=== PATIENT | male | born 1950 | race Caucasian/White ===

== ENCOUNTER 2018-02-02 22:30 | Inpatient (IN) | payer MEDICARE ==
[~2018-02-02] VITALS: Ht 182.9 cm; Wt 96.4 kg
[2018-02-03 00:03] LABS: BASOPHIL % 0.2 % (0-2); PLATELET COUNT 245 x10^3mcL (130-400)
[2018-02-03 00:10] LABS: RED CELL DISTRIBUTION WIDTH 21.3 % (11.5-14.5)
[2018-02-03 00:23] LABS: CALCIUM 8.1 mg/dL (8.5-10.1); CREATININE SERUM 1.5 mg/dL (0.7-1.3); POTASSIUM SERUM 3.5 mmol/L (3.5-5.1)
[2018-02-03 00:28] LABS: BILIRUBIN TOTAL 0.9 mg/dL (0.20-1.00); TOTAL PROTEIN, SERUM 7.1 g/dL (6.4-8.2)
[2018-02-03 00:31] LABS: ALBUMIN 2.5 g/dL (3.4-5.0)
[2018-02-03] MEDS ORDERED: MULTI-VITAMINS1 TAB PO (00:45)
[2018-02-03 01:51] LABS: CHOLESTEROL/HDL RATIO 3.5; MAGNESIUM 1.5 mg/dL (1.8-2.4); PHOSPHOROUS 2.9 mg/dL (2.5-4.9)
[2018-02-03 02:00] LABS: FREE T4 1.25 ng/dL (0.76-1.46); FREE THYROXINE INDEX 2.3 ug/dL (1.4-4.5); T4(THYROXINE) 5.9 ug/dL (4.7-13.3)
[2018-02-03 02:48] LABS: T3 TOTAL 0.8 ng/mL
[2018-02-03 02:56] VITALS: BP 125/68
[2018-02-03 05:17] VITALS: BP 123/76
[2018-02-03 05:48] LABS: BASOPHIL % 0.1 % (0-2); PLATELET COUNT 216 x10^3mcL (130-400)
[2018-02-03 05:52] LABS: CALCIUM 8.3 mg/dL (8.5-10.1); CARBON DIOXIDE 25.2 mmol/L (21-32); CREATININE SERUM 1.7 mg/dL (0.7-1.3); MAGNESIUM 1.8 mg/dL (1.8-2.4); PHOSPHOROUS 3.5 mg/dL (2.5-4.9); POTASSIUM SERUM 3.7 mmol/L (3.5-5.1)
[2018-02-03 05:54] LABS: RED CELL DISTRIBUTION WIDTH 21.5 % (11.5-14.5)
[2018-02-03 09:51] VITALS: BP 131/86
[2018-02-03 13:46] LABS: microscopic required? YES; urine erythrocyte 1+ (NEGATIVE)
[2018-02-03 13:52] LABS: AMPHETAMINE QUAL UR POSITIVE (See below)
[2018-02-03 17:48] VITALS: BP 125/72
[2018-02-03 21:00] VITALS: BP 128/63
[2018-02-04 05:47] VITALS: BP 121/65
[2018-02-04 06:45] LABS: BASOPHIL % 0.3 % (0-2); PLATELET COUNT 209 x10^3mcL (130-400)
[2018-02-04 06:57] LABS: CALCIUM 7.9 mg/dL (8.5-10.1); CARBON DIOXIDE 26.2 mmol/L (21-32); CHLORIDE SERUM 103 mmol/L (98-107); CREATININE SERUM 1.2 mg/dL (0.7-1.3); GFR1 > 60 mL/min; GLUCOSE SERUM 129 mg/dL (74-106); POTASSIUM SERUM 3.2 mmol/L (3.5-5.1); SODIUM SERUM 138 mmol/L (136-145)
[2018-02-04 07:00] LABS: RED CELL DISTRIBUTION WIDTH 21.5 % (11.5-14.5)
[2018-02-04 09:23] VITALS: BP 112/67
[2018-02-04 17:14] VITALS: BP 109/61
[2018-02-04 21:16] VITALS: BP 137/72
[2018-02-05 06:01] VITALS: BP 110/65
[2018-02-05 06:44] LABS: BASOPHIL % 0.1 % (0-2); PLATELET COUNT 253 x10^3mcL (130-400)
[2018-02-05 07:05] LABS: CARBON DIOXIDE 22.2 mmol/L (21-32); CHLORIDE SERUM 104 mmol/L (98-107); GFR1 > 60 mL/min; GLUCOSE SERUM 141 mg/dL (74-106); POTASSIUM SERUM 3.5 mmol/L (3.5-5.1); SODIUM SERUM 138 mmol/L (136-145)
[2018-02-05 07:26] LABS: RED CELL DISTRIBUTION WIDTH 21.2 % (11.5-14.5)
[2018-02-05 09:49] VITALS: BP 121/60
[2018-02-05] MEDS ORDERED: KEFLEX500 M1 PO (16:01)
[2018-02-05] MEDS ORDERED: LAC PO (16:02)
[2018-02-05 16:05] VITALS: BP 121/60
[2018-02-05] MEDS ORDERED: COLACE100 MG PO (16:22)
[2018-02-05 16:41] VITALS: Ht 182.9 cm; Wt 96.4 kg
== END 2018-02-05 19:43 | disposition home or self-care (01) | DRG 871 ==
LOC: ED 22:30 → MU 02-03 00:49
PROVIDERS: Emergency Medicine; Family Medicine; Internal Medicine
DX: A41.9 Sepsis, unspecified organism (principal); N17.0 Acute kidney failure with tubular necrosis; E43 Unspecified severe protein-calorie malnutrition; L03.116 Cellulitis of left lower limb; E87.1 Hypo-osmolality and hyponatremia; R65.20 Severe sepsis without septic shock; E86.0 Dehydration; E83.42 Hypomagnesemia; E83.51 Hypocalcemia; I87.8 Other specified disorders of veins; E11.65 Type 2 diabetes mellitus with hyperglycemia; I10 Essential (primary) hypertension; F15.10 Other stimulant abuse, uncomplicated; F10.10 Alcohol abuse, uncomplicated; F12.10 Cannabis abuse, uncomplicated; Z68.31 Body mass index [BMI] 31.0-31.9, adult; Z59.0 Homelessness
CPT/HCPCS: 82962; 83880; 84439; 97110-GP; 97116-GP; 97530-GP; 97535-GP; J0690; J1815; J1885; J1940; J7030; P9047; Q0092; Q9967

== ENCOUNTER 2018-07-16 16:02 | Inpatient (IN) | payer MEDICARE ==
[~2018-07-16] VITALS: Ht 177.8 cm; Wt 86.6 kg
[~2018-07-16 16:02] MED LIST: COLACE100 MG PO; KEFLEX500 M1 PO; LAC PO; MULTI-VITAMINS1 TAB PO
[2018-07-16 16:44] VITALS: Ht 177.8 cm; Wt 86.6 kg
[2018-07-16 19:22] LABS: BASOPHIL % 0.2 % (0-2)
[2018-07-16 19:24] LABS: RED CELL DISTRIBUTION WIDTH 18.9 % (11.5-14.5)
[2018-07-16 19:30] LABS: PLATELET COUNT 765 x10^3mcL (130-400)
[2018-07-16 19:32] LABS: CALCIUM 8.6 mg/dL (8.5-10.1); CARBON DIOXIDE 24.4 mmol/L (21-32); CREATININE SERUM 1.5 mg/dL (0.7-1.3); POTASSIUM SERUM 3.8 mmol/L (3.5-5.1)
[2018-07-16 19:37] LABS: ALBUMIN 1.7 g/dL (3.4-5.0); BILIRUBIN TOTAL 0.7 mg/dL (0.20-1.00); TOTAL PROTEIN, SERUM 8.5 g/dL (6.4-8.2)
[2018-07-16 19:49] LABS: URIC ACID 5.8 mg/dL (3.5-7.2)
[2018-07-16 20:10] LABS: C REACTIVE PROTEIN 34.5 mg/dL (<=0.9)
[2018-07-16] MEDS ORDERED: LASIX40 MG (21:16)
[2018-07-16 21:36] LABS: MAGNESIUM 1.9 mg/dL (1.8-2.4); PHOSPHOROUS 3.8 mg/dL (2.5-4.9)
[2018-07-16 22:55] VITALS: BP 135/75
[2018-07-17 03:33] LABS: UA SPECIFIC GRAVITY <=1.005 (1.005-1.035); microscopic required? YES; urine erythrocyte 1+ (NEGATIVE)
[2018-07-17 04:03] LABS: AMPHETAMINE QUAL UR POSITIVE (See below)
[2018-07-17 05:08] VITALS: BP 141/75
[2018-07-17 06:43] LABS: BASOPHIL % 0.3 % (0-2)
[2018-07-17 06:49] LABS: RED CELL DISTRIBUTION WIDTH 18.2 % (11.5-14.5)
[2018-07-17 06:58] LABS: CALCIUM 8.1 mg/dL (8.5-10.1); CARBON DIOXIDE 25.3 mmol/L (21-32); CREATININE SERUM 1.4 mg/dL (0.7-1.3)
[2018-07-17 08:07] LABS: PLATELET COUNT 621 x10^3mcL (130-400)
[2018-07-17 09:43] VITALS: BP 126/62
[2018-07-17 16:59] VITALS: BP 135/75
[2018-07-17 21:35] VITALS: BP 126/62
[2018-07-18 04:13] VITALS: BP 150/71
[2018-07-18 06:30] LABS: BASOPHIL % 0.5 % (0-2)
[2018-07-18 06:32] LABS: PLATELET COUNT 657 x10^3mcL (130-400)
[2018-07-18 07:23] LABS: CARBON DIOXIDE 22.6 mmol/L (21-32); CREATININE SERUM 1.3 mg/dL (0.7-1.3); POTASSIUM SERUM 4.3 mmol/L (3.5-5.1)
[2018-07-18 08:44] VITALS: BP 129/71
[2018-07-18 16:54] VITALS: BP 158/81
[2018-07-18 21:36] VITALS: BP 134/80
[2018-07-19 05:41] VITALS: BP 127/66
[2018-07-19 07:26] LABS: BASOPHIL % 0 % (0-2)
[2018-07-19 07:28] LABS: PLATELET COUNT 665 x10^3mcL (130-400)
[2018-07-19 07:30] LABS: CALCIUM 8.3 mg/dL (8.5-10.1); CHLORIDE SERUM 107 mmol/L (98-107); CREATININE SERUM 1.2 mg/dL (0.7-1.3); GFR1 > 60 mL/min; GLUCOSE SERUM 104 mg/dL (74-106); POTASSIUM SERUM 4.1 mmol/L (3.5-5.1); SODIUM SERUM 139 mmol/L (136-145)
[2018-07-19 09:27] VITALS: BP 136/73
[2018-07-19 18:18] VITALS: BP 149/78
[2018-07-19 21:41] VITALS: BP 152/76
[2018-07-20 05:32] VITALS: BP 150/79
[2018-07-20 07:54] LABS: PLATELET COUNT 793 x10^3mcL (130-400)
[2018-07-20 07:55] LABS: CALCIUM 8.5 mg/dL (8.5-10.1); CHLORIDE SERUM 105 mmol/L (98-107); CREATININE SERUM 1.1 mg/dL (0.7-1.3); GFR1 > 60 mL/min; GLUCOSE SERUM 114 mg/dL (74-106); POTASSIUM SERUM 4.2 mmol/L (3.5-5.1); SODIUM SERUM 138 mmol/L (136-145)
[2018-07-20 09:40] VITALS: BP 105/61
[2018-07-20 13:16] LABS: BAND NEUTROPHIL 0 % (0-10); BASOPHIL 0 % (0-2); MONOCYTE 9 % (0-7); SEGMENTED NEUTROPHILS 86 % (37-75)
[2018-07-20 13:17] LABS: PLATELET MORPHOLOGY PLATELETS INCREASED; rbc morphology (normal/abnorm) ABNORMAL (NORMAL)
[2018-07-20 16:46] VITALS: BP 148/91
[2018-07-20 20:51] VITALS: BP 122/83
[2018-07-21 06:19] VITALS: BP 177/86
[2018-07-21 06:32] VITALS: BP 167/87
[2018-07-21 07:00] LABS: BASOPHIL % 0.6 % (0-2)
[2018-07-21 07:05] LABS: CALCIUM 8.3 mg/dL (8.5-10.1); CARBON DIOXIDE 23.2 mmol/L (21-32); CHLORIDE SERUM 103 mmol/L (98-107); GFR1 > 60 mL/min; GLUCOSE SERUM 103 mg/dL (74-106); POTASSIUM SERUM 3.9 mmol/L (3.5-5.1); SODIUM SERUM 137 mmol/L (136-145)
[2018-07-21 07:52] LABS: RED CELL DISTRIBUTION WIDTH 18.5 % (11.5-14.5)
[2018-07-21 07:54] LABS: PLATELET COUNT 827 x10^3mcL (130-400)
[2018-07-21 09:36] VITALS: BP 136/77
[2018-07-21 17:00] VITALS: BP 159/92
[2018-07-21 20:53] VITALS: BP 142/81
[2018-07-22 05:45] VITALS: BP 136/73
[2018-07-22 06:51] LABS: BASOPHIL % 0.1 % (0-2)
[2018-07-22 07:02] LABS: CALCIUM 8.4 mg/dL (8.5-10.1); CARBON DIOXIDE 23.9 mmol/L (21-32); CHLORIDE SERUM 106 mmol/L (98-107); CREATININE SERUM 1.1 mg/dL (0.7-1.3); GFR1 > 60 mL/min; GLUCOSE SERUM 102 mg/dL (74-106); MAGNESIUM 1.9 mg/dL (1.8-2.4); POTASSIUM SERUM 3.9 mmol/L (3.5-5.1); SODIUM SERUM 140 mmol/L (136-145)
[2018-07-22 07:07] LABS: RED CELL DISTRIBUTION WIDTH 18.3 % (11.5-14.5)
[2018-07-22 08:35] LABS: PLATELET COUNT 901 x10^3mcL (130-400)
[2018-07-22 09:38] VITALS: BP 137/78
[2018-07-22] MEDS ORDERED: KEFLEX500 M1 PO (14:45)
[2018-07-22] MEDS ORDERED: LEVAQUIN750 MG PO (14:45)
[2018-07-22 17:19] VITALS: BP 138/66
[2018-07-22 20:57] VITALS: BP 131/79
[2018-07-23 04:56] VITALS: BP 146/80
[2018-07-23 09:04] VITALS: BP 153/85
[2018-07-23 17:57] VITALS: BP 154/92
[2018-07-23 20:56] VITALS: BP 148/91
[2018-07-24 05:49] VITALS: BP 138/85
[2018-07-24 07:16] LABS: CALCIUM 8.6 mg/dL (8.5-10.1); CARBON DIOXIDE 27.4 mmol/L (21-32); CHLORIDE SERUM 106 mmol/L (98-107); GFR1 > 60 mL/min; GLUCOSE SERUM 94 mg/dL (74-106); MAGNESIUM 2.2 mg/dL (1.8-2.4); PHOSPHOROUS 4.3 mg/dL (2.5-4.9); POTASSIUM SERUM 4.1 mmol/L (3.5-5.1); SODIUM SERUM 140 mmol/L (136-145)
[2018-07-24 07:20] VITALS: BP 140/79
[2018-07-24 07:20] LABS: BASOPHIL % 0.6 % (0-2)
[2018-07-24 07:21] LABS: RED CELL DISTRIBUTION WIDTH 18.1 % (11.5-14.5)
[2018-07-24 07:23] LABS: PLATELET COUNT 929 x10^3mcL (130-400)
[2018-07-24] MEDS ORDERED: MERREM IV1 GM INJ (11:05)
[2018-07-24] MEDS ORDERED: VANCO 1 GR1 GM/150 M IV (11:05)
[2018-07-24 12:55] VITALS: BP 140/79
[2018-07-24 15:50] VITALS: BP 109/60
[2018-07-24 20:46] VITALS: BP 132/72
== END 2018-07-24 22:43 | disposition short-term general hospital (02) | DRG 871 ==
LOC: ED 16:02 → MU 20:52
PROVIDERS: Emergency Medicine; Internal Medicine; ADMIT General Practice
DX: A41.9 Sepsis, unspecified organism (principal); N17.0 Acute kidney failure with tubular necrosis; G06.1 Intraspinal abscess and granuloma; L03.116 Cellulitis of left lower limb; L03.115 Cellulitis of right lower limb; N39.0 Urinary tract infection, site not specified; D68.69 Other thrombophilia; M46.24 Osteomyelitis of vertebra, thoracic region; E11.65 Type 2 diabetes mellitus with hyperglycemia; B96.4 Proteus (mirabilis) (morganii) as the cause of diseases classified elsewhere; M71.22 Synovial cyst of popliteal space [Baker], left knee; M71.21 Synovial cyst of popliteal space [Baker], right knee; F15.10 Other stimulant abuse, uncomplicated; R80.9 Proteinuria, unspecified; F10.10 Alcohol abuse, uncomplicated; R74.0 Nonspecific elevation of levels of transaminase and lactic acid dehydrogenase [LDH]; Z68.32 Body mass index [BMI] 32.0-32.9, adult; Z79.84 Long term (current) use of oral hypoglycemic drugs
CPT/HCPCS: 82962; 84439; 85378; 87491; 87591; 97110-GP; 97116-GP; 97530-GP; A9577; J0690; J1644; J1650; J1885; J2185; J2405; J2543; J3370; J7030; J7060; Q0092; Q9967